=== PATIENT | female | born 1945 | race Two or more races ===

== ENCOUNTER 2025-03-29 08:55 | Day surgery (SDC) | payer OTHER, SELFPAY ==
--- NOTE | 2025-03-24 13:21 | HO.ANESPROP2 ---
Documented by User: Magdalene Carrillo NP 03/26/25 12:12 HPI - Anesthesia Eval Consult details Narrative: 79 yr old female for Caudal epidural steroid injection *Pt was not reachable by PAT RN for screening. Aortic stenosis: follows PVC, last visit 11/2024; AV valve area 1.0, mean gradient 24 Last echocardiogram from August 2024 showed evidence of moderate aortic valve stenosis. The patient also has a history of moderate LVH but previous workup was negative for amyloidosis. Currently, the patient denies any significant cardiac symptoms. As such, would recommend a follow-up echocardiogram around August 2025 . CKD stage 4: follows renal, Dr. Shetty, last OV 02/2025; proteinuric Diabetic Nephropathy and HTN -Serum creat increased to 3.3 from 2.5 (07/03/24) -Current GFR is 14 from 19 as of 02/03/25 -Normal Lytes/Bicarb -UP/CR WNL at 187 as of 02/2024 -Plan: Avoid Nephrotoxins , Referred for dialysis modality education GERD: on daily PPI PMFSH Active Problems Active Problems: All Active Problems (Updated 03/18/25 @ 15:27 by [place] Clement DO) Lumbar radiculitis (Acute) Past Medical History Medical History Hyperparathyroidism Iron deficiency anemia Diarrhea GERD (gastroesophageal reflux disease) Diabetes HLD (hyperlipidemia) Aortic stenosis Hx of breast cancer HTN (hypertension) Diabetic neuropathy Chronic kidney disease (CKD) Lumbar radiculitis Surgical History Surgical History Hx of hysterectomy Hx of hernia repair Hx of breast biopsy Hx of right mastectomy (~2012) Social History Social History Are you a primary healthcare or medical to a significant other at home: No Do you presently have visiting nurse or other home services: Yes (LANGUAGE THERAPIST) Patient Tobacco Use Status: Never used Tobacco Second Hand Smoke Exposure: No Use of substances other than those prescribed or required for medical reasons: No Have you been hit, kicked, punched, or otherwise hurt by someone within the past year? If so, by whom?: No Are you DNR?: No Advance Directives: No Advance Directives Information Provided: Yes Advance Directives on File: No Patient : No : No Meds Allergies Allergy/AdvReac Type Severity Reaction Status Date / Time dulaglutide (From [facility]) Allergy Unknown Unknown Verified 03/22/25 13:38 Opioids - Morphine Analogues Allergy Unknown Unknown Verified 03/22/25 13:38 Home Medications ?Medication ?Instructions ?Recorded ?Confirmed ?Last Taken ?Type acarbose 25 mg tablet (Precose) 25 mg PO TID 03/25/25 03/29/25 Unknown History atorvastatin 10 mg tablet 10 mg PO DAILY 03/25/25 03/29/25 Unknown History calcitriol 0.25 mcg capsule 0.25 mcg PO DAILY 03/25/25 03/29/25 03/29/25 History citalopram 10 mg tablet 10 mg PO DAILY 03/25/25 03/29/25 03/29/25 History clonidine HCl 0.2 mg tablet 0.2 mg PO BID 03/25/25 03/29/25 03/29/25 History dicyclomine 10 mg capsule 10 mg PO Q6H PRN Abdominal 03/25/25 03/29/25 Unknown History Discomfort docusate sodium 100 mg capsule 100 mg PO BID 03/25/25 03/29/25 03/29/25 History donepezil 5 mg tablet 5 mg PO DAILY 03/25/25 03/29/25 Unknown History ferrous sulfate 325 mg (65 mg 325 mg PO DAILY 03/25/25 03/29/25 Unknown History iron) tablet furosemide 40 mg tablet 40 mg PO DAILY 03/25/25 03/29/25 03/29/25 History insulin glargine 100 unit/mL (3 50 unit subcut BEDTIME 03/25/25 03/29/25 Unknown History mL) subcutaneous pen (Lantus Solostar U-100 Insulin) loperamide 2 mg tablet 2 mg PO Q6H PRN Diarrhea 03/25/25 03/29/25 Unknown History losartan 100 mg tablet 100 mg PO DAILY 03/25/25 03/29/25 03/29/25 History pantoprazole 40 mg tablet,delayed 40 mg PO DAILY 03/25/25 03/29/25 03/29/25 History release plecanatide 3 mg tablet (Trulance) 3 mg PO DAILY 03/25/25 03/29/25 Unknown History sucralfate 1 gram tablet 1 g PO QID 03/25/25 03/29/25 03/29/25 History tramadol 50 mg tablet 50 mg PO BID PRN pain 03/25/25 03/29/25 Unknown History Exam Pertinent Lab Results Pertinent Lab Results: [facility] 02/03/25 Glucose 70 - 99 mg/dL 248?High? BUN 8 - 27 mg/dL 46?High? Creatinine 0.57 - 1.00 mg/dL 3.3?High? eGFR CKD-EPI CR 2020 >59 mL/min/1.73 14?Low? BUN/Creatinine Ratio 12 - 28 14 Sodium 134 - 144 mmol/L 142 Potassium 3.5 - 5.2 mmol/L 3.9 Chloride 96 - 106 mmol/L 103 Bicarbonate (CO2) 20 - 29 mmol/L 22 Calcium 8.7 - 10.3 mg/dL 8.3?Low? Albumin 3.8 - 4.8 g/dL 3.2?Low? Phosphorus 3.0 - 4.3 mg/dL 4.7?High? WBC 3.4 - 10.8 x10E3/uL 6.1 RBC 3.77 - 5.28 x10E6/uL 3.91 Hemoglobin 11.1 - 15.9 g/dL 10.3?Low? Hematocrit 34.0 - 46.6 % 33.7?Low? MCV 79 - 97 fL 86 MCH 26.6 - 33.0 pg 26.3?Low? MCHC 31.5 - 35.7 g/dL 30.6?Low? RDW 11.7 - 15.4 % 14 Platelets 150 - 450 x10E3/uL 173 Narrative Narrative: Nuclear Stress Test 07/2024 ? Normal perfusion ? There is no evidence of ischemia or infarct by myocardial perfusion imaging after attenuation correction. ? There is no evidence of transient ischemic dilation (TID). ? Gated SPECT imaging shows normal regional wall motion and thickening with a normal LVEF calculated be 70% ? Vasodilator (regadenoson) stress test was performed . Normal blood pressure response. ? ECG stress portion as documented below. ? Small calcified nodule noted in the left breast. Consider dedicated imaging. ? ECHO 08/2024 Interpretation Summary Left ventricle cavity size is normal. There is moderate concentric hypertrophy. Systolic function is hyperdynamic with an ejection fraction over 70%. There are no regional LV wall motion abnormalities Moderate aortic stenosis Compared to the prior study from 2023, the aortic valve gradients are lower and are most consistent with moderate aortic stenosis AV Mean Gradient 24 mmHg AV Area 2D 1 cm2 WOJCIECH Index (2D) 0.58 cm2/m2 AV Area Index 0.5 Documented by User: Rohini Oliveira MD 03/29/25 09:33 [facility] Past Medical History Medical History Hyperparathyroidism Iron deficiency anemia Diarrhea GERD (gastroesophageal reflux disease) Diabetes HLD (hyperlipidemia) Aortic stenosis Hx of breast cancer HTN (hypertension) Diabetic neuropathy Chronic kidney disease (CKD) Lumbar radiculitis Surgical History Surgical History Hx of hysterectomy Hx of hernia repair Hx of breast biopsy Hx of right mastectomy (~2012) History of Problems with Anesthesia: No Social History Social History Are you a primary healthcare or medical to a significant other at home: No Do you presently have visiting nurse or other home services: Yes (LANGUAGE THERAPIST) Patient Tobacco Use Status: Never used Tobacco Second Hand Smoke Exposure: No Use of substances other than those prescribed or required for medical reasons: No Have you been hit, kicked, punched, or otherwise hurt by someone within the past year? If so, by whom?: No Are you DNR?: No Advance Directives: No Advance Directives Information Provided: Yes Advance Directives on File: No Patient : No : No Meds Allergies Allergy/AdvReac Type Severity Reaction Status Date / Time dulaglutide (From [facility]) Allergy Unknown Unknown Verified 03/22/25 13:38 Opioids - Morphine Analogues Allergy Unknown Unknown Verified 03/22/25 13:38 Home Medications ?Medication ?Instructions ?Recorded ?Confirmed ?Last Taken ?Type acarbose 25 mg tablet (Precose) 25 mg PO TID 03/25/25 03/29/25 Unknown History atorvastatin 10 mg tablet 10 mg PO DAILY 03/25/25 03/29/25 Unknown History calcitriol 0.25 mcg capsule 0.25 mcg PO DAILY 03/25/25 03/29/25 03/29/25 History citalopram 10 mg tablet 10 mg PO DAILY 03/25/25 03/29/25 03/29/25 History clonidine HCl 0.2 mg tablet 0.2 mg PO BID 03/25/25 03/29/25 03/29/25 History dicyclomine 10 mg capsule 10 mg PO Q6H PRN Abdominal 03/25/25 03/29/25 Unknown History Discomfort docusate sodium 100 mg capsule 100 mg PO BID 03/25/25 03/29/25 03/29/25 History donepezil 5 mg tablet 5 mg PO DAILY 03/25/25 03/29/25 Unknown History ferrous sulfate 325 mg (65 mg 325 mg PO DAILY 03/25/25 03/29/25 Unknown History iron) tablet furosemide 40 mg tablet 40 mg PO DAILY 03/25/25 03/29/25 03/29/25 History insulin glargine 100 unit/mL (3 50 unit subcut BEDTIME 03/25/25 03/29/25 Unknown History mL) subcutaneous pen (Lantus Solostar U-100 Insulin) loperamide 2 mg tablet 2 mg PO Q6H PRN Diarrhea 03/25/25 03/29/25 Unknown History losartan 100 mg tablet 100 mg PO DAILY 03/25/25 03/29/25 03/29/25 History pantoprazole 40 mg tablet,delayed 40 mg PO DAILY 03/25/25 03/29/25 03/29/25 History release plecanatide 3 mg tablet (Trulance) 3 mg PO DAILY 03/25/25 03/29/25 Unknown History sucralfate 1 gram tablet 1 g PO QID 03/25/25 03/29/25 03/29/25 History tramadol 50 mg tablet 50 mg PO BID PRN pain 03/25/25 03/29/25 Unknown History Exam Airway Mallampati Class: II TM Dist: >3cm Neck ROM: Full Loose/Missing/Broken Teeth: No Heart: RRR Lungs: CTA Assessment and Plan Assessment Anesthesia Assessment: Anesthesia Plan Discussed and Chart Reviewed Final Anesthetic Review History of Problems with Anesthesia: No NPO: Yes ASA Class: III Final Preanesthetic Review: Meds/Allgs Chart Reviewed, Consent Obtained/Reviewed and Anes Risks/Benef Reviewed Patient Risk: Intermediate Procedure Risk: Low Anesthetic Plan Anesthetic Plan: MAC: Disposition: Standard PACU
[2025-03-25 16:05] VITALS: BMI 32.2
--- NOTE | ~2025-03-29 | FL_ITS ---
EXAMINATION: FL GUIDANCE ONLY HISTORY: caudal [place] COMPARISON: None available. TECHNIQUE: Fluoroscopy time: 8 seconds. Cumulative Dose: 2.50 mGy. DAP: 109.67 uGym2 Images: 2. FINDINGS: Fluoroscopic spot films of the sacrum demonstrate a needle and contrast material in place. FL/FL guidance in OR IMPRESSION: Fluoroscopy during procedure. Please see procedure report for additional information. Electronically signed by: Armen Thornton MD 03/29/2025 11:33 AM [facility]
[2025-03-29 09:15] VITALS: BP 111/54; PULSE 56; RESP 16; TEMP 36.6; O2SAT 99
[2025-03-29] MEDS: Lactated Ringers 1,000 ML 100 ML IVCONT (09:21)
--- NOTE | 2025-03-29 09:21 | MHC.SHP ---
Pre-Procedural Eval Section A - 24 Hr Update-Section A only Date of Service: 03/29/25 The patient is an INPATIENT: No Changes since office visit: No Cold of Flu in the past 2 weeks, No New Medical Problems, No Changes in Medication and No Patient answered all questions Section B - Complete if H&P > 30 days Chief Complaint: Radiculopathy, lumbar region Details of Present Illness: Lumbar radiculitis, chronic Relevant Family History (Specify if Yes): No Relevant Social History: None Present Medications: None Medical History: No relevant PMH History of Previous Operations: No relevant previous surgery Allergies: Allergies Allergy/AdvReac Type Severity Reaction Status Date / Time dulaglutide (From [facility]) Allergy Unknown Unknown Verified 03/22/25 13:38 Opioids - Morphine Analogues Allergy Unknown Unknown Verified 03/22/25 13:38 Review of Systems Sugical H&P ROS: Negative: Constitution, Cardiovascular, Respiratory, Neurological, Psychiatric, Hem-Onc, Allergic/Immunologic, Gastrointestinal, Genitourinary, Musculoskeletal, Integumentary, Endocrine and Eyes/Ears/Nose/Throat Exam Surgical H&P Exam: Normal: HEENT, Normal: Heart, Normal: Lungs, Normal: Extremities, Normal: Abdomen, Normal: Skin and Normal: Neurological Plan Diagnosis/Plan: Unchanged I have reviewed the history and physical and performed a pertinent physical examination on my patient. No changes have occurred unless specified. Time Spent With Patient Time: Total time managing care of this patient today ____ minutes.
--- NOTE | 2025-03-29 09:23 | W.PM.OPN ---
Operative Note Operative Note Date of Service: 03/29/25 Narrative: Procedure performed: Caudal Epidual Injection under fluoroscopic guidance Pre-op diagnosis: Lumbar radiculitis Postop diagnosis: The same Anesthesia: Mac After informed consent was obtained patient was brought into the procedure room and placed in the prone position on the procedure table. Skin over sacral area was prepped and draped in usual sterile manner. Sacral hiatus was visualized utilizing fluoroscopy. 3.5 in 22 gauge spinal needle was introduced percutaneously and advanced into the spinal canal via sacral hiatus. Needle placement was verified utilizing 3 cc of Omnipaque contrast solution. Total volume of 10 cc containing 3 cc of 1% lidocaine, 40 mg of triamcinolone, normal saline solution was injected after negative aspiration for blood and cerebrospinal fluid. Radiation exposure was recorded and documented in the chart.
[2025-03-29 09:28] LABS: Glucose, Whole Blood 141 mg/dL (60-115)
[2025-03-29 09:58] VITALS: BP 146/62; PULSE 54; RESP 18; TEMP 36.6; O2SAT 98
[2025-03-29 10:13] VITALS: BP 129/63; PULSE 59; RESP 16; TEMP 36.1; O2SAT 99
--- NOTE | 2025-03-29 10:57 | PC.NURSE ---
THIS RN WENT OVER ALL DISCHARGE INSTRUCTIONS WITH PATIENT'S GRANDDAUGHTER PATIENT WASN'T REMEMBERING ANYTHING THE RN SAID.
== END 2025-03-29 10:59 | disposition home or self-care (01) ==
PROVIDERS: PCP Nurse Practitioner Acute Care; Visit Provider Physical Medicine & Rehabilitation
PROC: 3E0R3GC Introduction of Other Therapeutic Substance into Spinal Canal, Percutaneous Approach (ICD-10-PCS; CPT 62322; principal; 2025-03-29 10:00)
DX: M54.16 Radiculopathy, lumbar region (principal); M48.062 Spinal stenosis, lumbar region with neurogenic claudication; M79.18 Myalgia, other site; F03.90 Unspecified dementia, unspecified severity, without behavioral disturbance, psychotic disturbance, mood disturbance, and anxiety; R41.89 Other symptoms and signs involving cognitive functions and awareness; I12.9 Hypertensive chronic kidney disease with stage 1 through stage 4 chronic kidney disease, or unspecified chronic kidney disease; E11.22 Type 2 diabetes mellitus with diabetic chronic kidney disease; N18.9 Chronic kidney disease, unspecified; E11.42 Type 2 diabetes mellitus with diabetic polyneuropathy; I10 Essential (primary) hypertension; Z85.3 Personal history of malignant neoplasm of breast; Z90.11 Acquired absence of right breast and nipple; Z90.710 Acquired absence of both cervix and uterus; Z79.4 Long term (current) use of insulin; Z79.899 Other long term (current) drug therapy; Z88.5 Allergy status to narcotic agent; Z88.8 Allergy status to other drugs, medicaments and biological substances
CPT/HCPCS: 62323; 82947; J2003; J2250; J3010; J3301; Q9967

== ENCOUNTER → 2025-03-29 08:55 | Outpatient (BNV) | payer OTHER, SELFPAY | PROVIDERS: PCP Nurse Practitioner Acute Care; Visit Provider Physical Medicine & Rehabilitation | DX: M54.16 Radiculopathy, lumbar region (principal) | CPT/HCPCS: 62323 ==